=== PATIENT | female | born 1975 | race Caucasian/White ===

== ENCOUNTER 2016-07-23 11:47 | Emergency (ER) | payer MEDICAID ==
[~2016-07-23] VITALS: Ht 182.9 cm; Wt 78.2 kg
[2016-07-23 12:11] VITALS: BP 116/86
[2016-07-23] MEDS ORDERED: ACYCLOVIR 200 MG CAPSULE PO ONE (12:30)
[2016-07-23] MEDS ORDERED: PredniSONE 20 MG TABLET PO ONE (12:30)
== END 2016-07-23 12:58 | disposition home or self-care (01) ==
LOC: EMS 11:49
DX: B00.89 Other herpesviral infection (principal); T78.1XXA Other adverse food reactions, not elsewhere classified, initial encounter; Z91.018 Allergy to other foods
CPT/HCPCS: 99283; J7512